=== PATIENT | female | born 1975 | race Caucasian/White ===

== ENCOUNTER 2022-08-29 16:37 | Emergency (ER) | payer OTHER, MEDICAID ==
[2022-08-29] MEDS ORDERED: ONDANSETRON ODT 4 MG TABLET TL STA (17:00)
--- NOTE | 2022-08-29 17:09 | ED Physician Documentation ---
PD HPI NVD - Stated complaint Stated Complaint: VOMITING - Chief complaint Chief Complaint: Abd Pain - History obtained from History obtained from: Patient - Additonal information Additional information: This is a 46-year-old Female with a past history of alcoholism (quit Drinking a few months ago but recently started to introduce "a little" alcohol back into her regimen), and pancreatitis who presents with vomiting and abdominal pain. Symptoms started yesterday and worsened today. Pain is in the lower abdomen, in a different location than prior episodes of pancreatitis. Radiates into her shruthi k. She does not have any dysuria urgency or frequency. No hematuria. She has not had any fever or chills. She states that all she has been able to eat today there is some popsicles which she states she then threw up. 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 Review of Systems Constitutional: reports: Reviewed and negative Cardiac: reports: Reviewed and negative Respiratory: reports: Reviewed and negative GI: reports: Abdominal Pain, Nausea, Vomiting. denies: Abdominal Swelling, Constipation, Diarrhea, Hematemesis, Bloody / black stool : reports: Reviewed and negative Skin: reports: Reviewed and negative Musculoskeletal: reports: Reviewed and negative PD PAST MEDICAL HISTORY - Past Medical History Past Medical History: Yes Other Past Medical History: Alcoholism, pancreatitis, marijuana use - Present Medications Home Medications: Ambulatory Orders Medication Instructions Recorded Confirmed ONDANSETRON ODT Prepack 2 [ZOFRAN 4 mg TL Q6H #12 tablet 08/29/22 ODT Prepack 2] Omeprazole 40 mg PO DAILY #30 cap 08/29/22 Trazodone HCl 100 mg PO QPM 08/29/22 08/29/22 - Allergies Allergies/Adverse Reactions: Allergies Allergy/AdvReac Type Severity Reaction Status Date / Time amoxicillin Allergy Unknown Verified 08/29/22 16:53 cephalexin Allergy Unknown Verified 08/29/22 16:53 Penicillins Allergy Unknown Verified 08/29/22 16:53 clavulanic acid AdvReac Emesis Verified 08/29/22 16:53 [From Augmentin] Sulfa (Sulfonamide AdvReac Emesis Verified 08/29/22 16:53 Antibiotics) PD ED PE NORMAL - Vitals Vital signs reviewed: Yes - General General: Alert and oriented X 3, No acute distress, Well developed/nourished - HEENT HEENT: Atraumatic, Pharynx benign - Neck Neck: Supple, no meningeal sign, No JVD - Cardiac Cardiac: RRR, No murmur - Respiratory Respiratory: No respiratory distress, Clear bilaterally - Abdomen Abdomen: Normal bowel sounds, Soft, Non distended, No organomegaly - Derm Derm: Normal color, Warm and dry, No rash - Extremities Extremities: No deformity, No tenderness to palpate, Normal ROM s pain - Neuro Neuro: Alert and oriented X 3 Eye Opening: Spontaneous Motor: Obeys Commands Verbal: Oriented GCS Score: 15 - Psych Psych: Normal mood, Normal affect Results - Vitals Vitals: Vital Signs - 24 hr 08/29/22 08/29/22 08/29/22 16:50 17:21 18:24 Temperature 36 C L Heart Rate 98 Respiratory 16 17 17 Rate Blood Pressure 116/79 O2 Saturation 99 08/29/22 08/29/22 20:34 20:53 Temperature Heart Rate 53 L Respiratory 18 17 Rate Blood Pressure 120/57 L O2 Saturation 100 Oxygen O2 Source Room air - Labs Labs: Laboratory Tests 08/29/22 08/29/22 08/29/22 17:05 17:05 20:22 WBC 10.3 RBC 4.82 Hgb 14.8 Hct 43.6 MCV 90.5 MCH 30.7 MCHC 33.9 RDW 12.7 Plt Count 312 MPV 8.9 Neut # (Auto) 7.8 H Lymph # (Auto) 2.0 [place] # (Auto) 0.4 Eos # (Auto) 0.0 Baso # (Auto) 0.0 Absolute Nucleated RBC 0.00 Nucleated RBC % 0.0 Sodium 139 Potassium 3.3 L Chloride 101 Carbon Dioxide 21 Anion Gap 17.0 H BUN 12 Creatinine 0.7 Estimated GFR (MDRD) 91 Glucose 85 Calcium 9.1 Total Bilirubin 0.8 AST 24 ALT 18 Alkaline Phosphatase 85 Total Protein 7.8 Albumin 4.5 Globulin 3.3 Albumin/Globulin Ratio 1.4 Lipase 23 Urine Color Urine Clarity Urine pH Ur Specific [place] Urine Protein Urine Glucose (UA) Urine Ketones Urine Occult Blood Urine Nitrite Urine Bilirubin Urine Urobilinogen Ur Leukocyte Esterase Ur Microscopic Review Urine Culture Comments Urine HCG, Qual NEGATIVE 08/29/22 20:22 WBC RBC Hgb Hct MCV MCH MCHC RDW Plt Count MPV Neut # (Auto) Lymph # (Auto) [place] # (Auto) Eos # (Auto) Baso # (Auto) Absolute Nucleated RBC Nucleated RBC % Sodium Potassium Chloride Carbon Dioxide Anion Gap BUN Creatinine Estimated GFR (MDRD) Glucose Calcium Total Bilirubin AST ALT Alkaline Phosphatase Total Protein Albumin Globulin Albumin/Globulin Ratio Lipase Urine Color YELLOW Urine Clarity CLEAR Urine pH 6.0 Ur Specific [place] >=1.030 H Urine Protein TRACE Urine Glucose (UA) NEGATIVE Urine Ketones 40 H Urine Occult Blood TRACE-INTA Urine Nitrite NEGATIVE Urine Bilirubin NEGATIVE Urine Urobilinogen 0.2 (NORMAL) Ur Leukocyte Esterase NEGATIVE Ur Microscopic Review NOT INDICATED Urine Culture Comments NOT INDICATED Urine HCG, Qual PD Medical Decision Making - ED course Complexity details: reviewed results, re-evaluated patient, considered differential, d/w patient ED course: 46-year-old female presented with lower abdominal pain as well as nausea and vomiting which started today. The patient is very well-appearing on physical exam with stable vital signs, she is afebrile nontoxic. She came out in the [facility] several times asking for pain medication and nausea medicine before I was able to see the patient. On physical exam however there is no reproducible pain, she appears very comfortable. I did obtain labs including CBC and CMP which are reassuring, her lipase is normal, urinalysis is negative for infection. She received Zofran and a milligram of Dilaudid with improvement in her symptoms. She has not vomited here. And is tolerating clear liquids. She states she feels like her appetite is coming back and she would like to try some soup. I Suspect this is a mild viral illness, she does not have signs of acute abdomen, no UTI, no pancreatitis, no reproducible abdominal pain to suggest the need for CT scan at this time. I recommended clear liquid diet today and advance slowly as tolerated, I have started her on Zofran as needed as well as Omeprazole. She likely has some underlying gastritis given her history. She was strongly urged to cease all alcohol use as a explained to her that I do not think it was a good idea to read to introduce alcohol given her history and she states understanding. I discussed return precautions in detail with patient and she was discharged home in stable condition. Departure - Departure Disposition: 01 Home, Self Care Clinical Impression: Nausea and vomiting Qualifiers: Vomiting type: unspecified Qualified Code(s): R11.2 - Nausea with vomiting, unspecified Condition: Good Instructions: ED Nausea Vomiting Prescriptions: Omeprazole 40 mg PO DAILY #30 cap ONDANSETRON ODT Prepack 2 [ZOFRAN ODT Prepack 2] 4 mg TL Q6H #12 tablet Comments: Please adhere to a clear liquid diet today, advance slowly as tolerated. We have given you nausea medication in another and acid. Please avoid using alcohol.Follow-up with your primary doctor for this issue or return to the ER if worsening. Discharge Date/Time: 08/29/22 20:56
[2022-08-29 17:18] LABS: BASOPHILS % (AUTO) 0.2 %; EOSINOPHILS % (AUTO) 0.1 %; HCT - HEMATOCRIT 43.6 % (37.0-47.0); HGB - HEMOGLOBIN 14.8 g/dL (12.0-16.0); LYMPHOCYTES % (AUTO) 19.6 %; MEAN CORPUSCULAR HEMOGLOBIN 30.7 pg (27.0-31.0); MEAN CORPUSCULAR HGB CONC 33.9 g/dL (32.0-36.0); MEAN CORPUSCULAR VOLUME 90.5 fL (81.0-99.0); MEAN PLATELET VOLUME 8.9 fL (7.9-10.8); MONOCYTES # (AUTO) 0.4 10^3/uL (0.0-1.0); MONOCYTES % (AUTO) 4.1 %; NEUTROPHILS # (AUTO) 7.8 10^3/uL (1.5-6.6); NEUTROPHILS % (AUTO) 75.7 %; PLT - PLATELET COUNT 312 10^3/uL (130-450); RED BLOOD COUNT 4.82 10^6/uL (4.20-5.40); RED CELL DISTRIBUTION WIDTH 12.7 % (12.0-15.0); WHITE BLOOD COUNT 10.3 x10^3/uL (4.8-10.8)
[2022-08-29 17:33] LABS: ALBUMIN 4.5 g/dL (3.2-5.5); ALBUMIN/GLOBULIN RATIO 1.4 (1.0-2.2); BILIRUBIN,TOTAL 0.8 mg/dL (0.2-1.0); CALCIUM 9.1 mg/dL (8.5-10.3); CREATININE 0.7 mg/dL (0.4-1.0); POTASSIUM 3.3 mmol/L (3.5-5.0); TOTAL PROTEIN 7.8 g/dL (6.7-8.2)
[2022-08-29] MEDS ORDERED: HYDROmorphone 1 MG/ML CARPUJECT IVP STA (18:31)
[2022-08-29] MEDS ORDERED: KETOROLAC 30 MG/ML VIAL IVP STA (18:32)
[2022-08-29] MEDS ORDERED: SODIUM CHLORIDE 0.9% 1,000 ML IV STA (18:32)
[2022-08-29 20:31] LABS: BILIRUBIN,URINE NEGATIVE (NEGATIVE); GLUCOSE, URINE (UA) NEGATIVE (NEGATIVE); KETONES,URINE (UA) 40 mg/dL (NEGATIVE); LEUKOCYTE ESTERASE, URINE NEGATIVE (NEGATIVE); NITRITE,URINE NEGATIVE (NEGATIVE); OCCULT BLOOD,URINE TRACE-INTA (NEGATIVE); PROTEIN,URINE TRACE mg/dL (NEGATIVE); UROBILINOGEN,URINE 0.2 (NORMAL) E.U./dL (NORMAL)
[2022-08-29 20:34] LABS: CLARITY,URINE CLEAR (CLEAR); HCG UR QUAL NEGATIVE
[2022-08-29 20:37] VITALS: BP 120/57
[2022-08-29] MEDS ORDERED: ONDANSETRON ODT 4 MG Prepack 2 TL PRN (20:38)
[2022-08-29] MEDS: PROMETHAZINE INJ 12.5 MG in SODIUM CHLORIDE 0.9% 50 ML IV STA ×2 (20:46→20:56)
[2022-08-29] MEDS ORDERED: PROMETHAZINE 25 MG/1 ML VIAL ONE (20:49)
== END 2022-08-29 20:56 | disposition home or self-care (01) ==
LOC: ED 16:37
DX: R11.2 Nausea with vomiting, unspecified (principal)
CPT/HCPCS: 36415; 80053; 81001; 81003; 81025; 83690; 85025; 87086; 96374; 99284

== ENCOUNTER 2022-09-21 11:33 | Outpatient (CLI) | payer OTHER, MEDICAID | END 2022-09-21 11:34 | disposition critical access hospital (66) | LOC: EMS 11:33 | DX: R45.851 Suicidal ideations (principal); R51.9 Headache, unspecified; R53.83 Other fatigue; R53.1 Weakness | CPT/HCPCS: A0425; A0429 ==

== ENCOUNTER 2022-09-21 11:55 | Emergency (ER) | payer OTHER, MEDICAID ==
[2022-09-21 12:19] VITALS: BP 120/74
--- NOTE | 2022-09-21 12:33 | ED Physician Documentation ---
PD HPI MHE - Stated complaint Stated Complaint: MHE/ETOH - Chief complaint Chief Complaint: MHE - History obtained from History obtained from: Patient, EMS - History of Present Illness Primary symptom: Suicidal ideation Timing - onset: Chronic Pain level max: 0 Pain level now: 0 Contributing factors: Family, Substance abuse - ETOH (Alcohol this morning) - Additional information Additional information: 46-year-old female states that she has been battling depression for "a long time". She states that she thinks about suicide often but has never attempted. Does not have a plan. Lives at home with 3 other people. She states that she had "1 shot of whiskey" today. She states that she has an appointment tomorrow with her PCP to discuss restarting on antidepressants. She states she has never been hospitalized for psychiatric care before. She states that she "just does not know what to do". Review of Systems Constitutional: denies: Fever, Chills Nose: denies: Rhinorrhea / runny nose, Congestion Respiratory: denies: Cough GI: denies: Nausea, Vomiting, Diarrhea : denies: Dysuria Skin: denies: Rash Musculoskeletal: denies: Neck pain, Back pain Neurologic: denies: Headache Psychiatric: reports: Depressed. denies: Homicidal, Hallucinations, Delusions, Anxiety, Insomnia PD PAST MEDICAL HISTORY - Past Medical History Past Medical History: Yes Psych: Depression, Anxiety - Past Surgical History Past Surgical History: No - Present Medications Home Medications: Ambulatory Orders Medication Instructions Recorded Confirmed ONDANSETRON ODT Prepack 2 [ZOFRAN 4 mg TL Q6H #12 tablet 08/29/22 ODT Prepack 2] Omeprazole 40 mg PO DAILY #30 cap 08/29/22 Trazodone HCl 100 mg PO QPM 08/29/22 08/29/22 - Allergies Allergies/Adverse Reactions: Allergies Allergy/AdvReac Type Severity Reaction Status Date / Time amoxicillin Allergy Unknown Verified 08/29/22 16:53 cephalexin Allergy Unknown Verified 08/29/22 16:53 Penicillins Allergy Unknown Verified 08/29/22 16:53 clavulanic acid AdvReac Emesis Verified 08/29/22 16:53 [From Augmentin] Sulfa (Sulfonamide AdvReac Emesis Verified 08/29/22 16:53 Antibiotics) PD ED PE NORMAL - Vitals Vital signs reviewed: Yes - General General: Alert and oriented X 3, Other (Smells of alcohol) - HEENT HEENT: PERRL, Moist mucous membranes, Pharynx benign - Neck Neck: Supple, no meningeal sign - Cardiac Cardiac: RRR, Strong equal pulses - Respiratory Respiratory: No respiratory distress, Clear bilaterally - Abdomen Abdomen: Soft, Non tender, Non distended - Derm Derm: Warm and dry - Extremities Extremities: No edema, No calf tenderness / cord - Neuro Neuro: Alert and oriented X 3 - Psych Psych: Other (Tearful) Results - Vitals Vitals: Vital Signs - 24 hr 09/21/22 12:07 Temperature 36.5 C Heart Rate 89 Respiratory 15 Rate Blood Pressure 120/74 O2 Saturation 99 Oxygen O2 Source Room air - Labs Labs: Laboratory Tests 09/21/22 09/21/22 09/21/22 12:04 12:31 12:31 WBC 7.1 RBC 5.06 Hgb 15.9 Hct 47.1 H MCV 93.1 MCH 31.4 H MCHC 33.8 RDW 13.8 Plt Count 208 MPV 9.0 Neut # (Auto) 4.2 Lymph # (Auto) 2.5 [place] # (Auto) 0.3 Eos # (Auto) 0.0 Baso # (Auto) 0.0 Absolute Nucleated RBC 0.00 Nucleated RBC % 0.0 Sodium 148 H Potassium 3.5 Chloride 110 Carbon Dioxide 28 Anion Gap 10.0 BUN 10 Creatinine 0.6 Estimated GFR (MDRD) 109 Glucose 92 Calcium 9.4 Total Bilirubin 0.5 AST 33 ALT 33 Alkaline Phosphatase 91 Total Protein 7.8 Albumin 4.7 Globulin 3.1 Albumin/Globulin Ratio 1.5 Lipase 23 TSH Urine Color LIGHT YELLOW Urine Clarity CLEAR Urine pH 6.5 Ur Specific [place] <=1.005 Urine Protein NEGATIVE Urine Glucose (UA) NEGATIVE Urine Ketones NEGATIVE Urine Occult Blood NEGATIVE Urine Nitrite NEGATIVE Urine Bilirubin NEGATIVE Urine Urobilinogen 0.2 (NORMAL) Ur Leukocyte Esterase NEGATIVE Ur Microscopic Review NOT INDICATED Urine Culture Comments NOT INDICATED Salicylates < 6.0 Urine Opiates Screen NEGATIVE Ur Oxycodone Screen POSITIVE H Urine Methadone Screen NEGATIVE Ur Propoxyphene Screen NEGATIVE Acetaminophen < 10 L Ur Barbiturates Screen NEGATIVE Ur Tricyclics Screen NEGATIVE Ur Phencyclidine Scrn NEGATIVE Ur Amphetamine Screen NEGATIVE U Methamphetamines Scrn NEGATIVE U Benzodiazepines Scrn NEGATIVE Urine Cocaine Screen NEGATIVE U Cannabinoids Screen NEGATIVE Ethyl Alcohol 344.4 09/21/22 12:31 WBC RBC Hgb Hct MCV MCH MCHC RDW Plt Count MPV Neut # (Auto) Lymph # (Auto) [place] # (Auto) Eos # (Auto) Baso # (Auto) Absolute Nucleated RBC Nucleated RBC % Sodium Potassium Chloride Carbon Dioxide Anion Gap BUN Creatinine Estimated GFR (MDRD) Glucose Calcium Total Bilirubin AST ALT Alkaline Phosphatase Total Protein Albumin Globulin Albumin/Globulin Ratio Lipase TSH < 0.08 L Urine Color Urine Clarity Urine pH Ur Specific [place] Urine Protein Urine Glucose (UA) Urine Ketones Urine Occult Blood Urine Nitrite Urine Bilirubin Urine Urobilinogen Ur Leukocyte Esterase Ur Microscopic Review Urine Culture Comments Salicylates Urine Opiates Screen Ur Oxycodone Screen Urine Methadone Screen Ur Propoxyphene Screen Acetaminophen Ur Barbiturates Screen Ur Tricyclics Screen Ur Phencyclidine Scrn Ur Amphetamine Screen U Methamphetamines Scrn U Benzodiazepines Scrn Urine Cocaine Screen U Cannabinoids Screen Ethyl Alcohol PD Medical Decision Making - ED course Complexity details: considered differential, d/w patient ED course: Patient states that she changed her mind about staying and talking to social work or trying to get her help as an outpatient. She does not want inpatient care. She is not actively suicidal. Does not currently have a plan. States that she feels safe at home and will follow-up with her PCP tomorrow. Her friend is coming to get her and the patient was able to contract for safety. The friend is comfortable taking her home and being responsible for her. Offered several times to allow the patient to sober in the emergency department so we can help her with her depression. Patient states that she would rather follow-up with her primary care provider tomorrow as scheduled. Patient states that she has never attempted suicide. Patient contracts for safety today. States she will speak to her doctor tomorrow. Patient refused to wait for discharge instructions and left the emergency department under her own power with a steady gait, clear speech and with her friend. Departure - Departure Disposition: Left Prior to DC Instructions Clinical Impression: Depression Qualifiers: Depression Type: unspecified Qualified Code(s): F32.A - Depression, unspecified Condition: Good Instructions: ED Depression Follow-Up: CAMDEN DOMINGUEZ ARNP [Physician No Access] - Tomorrow Discharge Date/Time: 09/21/22 13:02
[2022-09-21 12:36] LABS: MUDS CUTOFF CONCENTRATIONS CUTOFF CONC BELOW:
[2022-09-21 12:36] LABS: BASOPHILS % (AUTO) 0.4 %; EOSINOPHILS % (AUTO) 0.6 %; HCT - HEMATOCRIT 47.1 % (37.0-47.0); HGB - HEMOGLOBIN 15.9 g/dL (12.0-16.0); LYMPHOCYTES # (AUTO) 2.5 10^3/uL (1.5-3.5); LYMPHOCYTES % (AUTO) 35.6 %; MEAN CORPUSCULAR HEMOGLOBIN 31.4 pg (27.0-31.0); MEAN CORPUSCULAR HGB CONC 33.8 g/dL (32.0-36.0); MEAN CORPUSCULAR VOLUME 93.1 fL (81.0-99.0); MONOCYTES # (AUTO) 0.3 10^3/uL (0.0-1.0); MONOCYTES % (AUTO) 3.5 %; NEUTROPHILS # (AUTO) 4.2 10^3/uL (1.5-6.6); NEUTROPHILS % (AUTO) 59.6 %; PLT - PLATELET COUNT 208 10^3/uL (130-450); RED BLOOD COUNT 5.06 10^6/uL (4.20-5.40); RED CELL DISTRIBUTION WIDTH 13.8 % (12.0-15.0); WHITE BLOOD COUNT 7.1 x10^3/uL (4.8-10.8)
[2022-09-21 12:49] LABS: BILIRUBIN,URINE NEGATIVE (NEGATIVE); GLUCOSE, URINE (UA) NEGATIVE (NEGATIVE); KETONES,URINE (UA) NEGATIVE (NEGATIVE); LEUKOCYTE ESTERASE, URINE NEGATIVE (NEGATIVE); NITRITE,URINE NEGATIVE (NEGATIVE); OCCULT BLOOD,URINE NEGATIVE (NEGATIVE); PH,URINE 6.5 PH (5.0-7.5); PROTEIN,URINE NEGATIVE (NEGATIVE); UROBILINOGEN,URINE 0.2 (NORMAL) E.U./dL (NORMAL)
[2022-09-21 12:51] LABS: CLARITY,URINE CLEAR (CLEAR)
[2022-09-21 13:05] LABS: AMPHETAMINE SCREEN,URINE NEGATIVE (NEGATIVE); BARBITURATE SCREEN,UR NEGATIVE (NEGATIVE); BENZODIAZEPINES SCREEN, URINE NEGATIVE (NEGATIVE); COCAINE SCREEN URINE NEGATIVE (NEGATIVE); METHADONE SCREEN, URINE NEGATIVE (NEGATIVE); METHAMPHETAMINES SCREEN, URINE NEGATIVE (NEGATIVE); OPIATE SCREEN, URINE NEGATIVE (NEGATIVE); OXYCODONE SCREEN, URINE POSITIVE (NEGATIVE); PROPOXYPHENE SCREEN, URINE NEGATIVE (NEGATIVE); THC CANNABINOID SCREEN, URINE NEGATIVE (NEGATIVE); TRICYCLIC ANTIDEPRESSANT,URINE NEGATIVE (NEGATIVE)
[2022-09-21 13:13] LABS: ACETAMINOPHEN < 10 ug/mL (10-30); ALBUMIN 4.7 g/dL (3.2-5.5); ALBUMIN/GLOBULIN RATIO 1.5 (1.0-2.2); ALKALINE PHOSPHATASE 91 IU/L (42-121); ALT ALANINE AMINOTRANSFERASE 33 IU/L (10-60); AST ASPARTATE AMINOTRANSFERASE 33 IU/L (10-42); BILIRUBIN,TOTAL 0.5 mg/dL (0.2-1.0); BUN - BLOOD UREA NITROGEN 10 mg/dL (6-20); CALCIUM 9.4 mg/dL (8.5-10.3); CARBON DIOXIDE - CO2 28 mmol/L (21-32); CHLORIDE 110 mmol/L (101-111); CREATININE 0.6 mg/dL (0.4-1.0); ETOH - ETHANOL 344.4 mg/dL; GFR - MDRD 109 (>89); GLUCOSE 92 mg/dL (70-100); LIPASE 23 U/L (22-51); POTASSIUM 3.5 mmol/L (3.5-5.0); SALICYLATE < 6.0 mg/dL; SODIUM 148 mmol/L (135-145); TOTAL PROTEIN 7.8 g/dL (6.7-8.2)
== END 2022-09-21 13:02 | disposition home or self-care (01) ==
LOC: EDUNIT# → ED 11:55
DX: F32.A Depression, unspecified (principal); F10.129 Alcohol abuse with intoxication, unspecified; F11.90 Opioid use, unspecified, uncomplicated; Y90.8 Blood alcohol level of 240 mg/100 ml or more; F41.9 Anxiety disorder, unspecified; Z79.899 Other long term (current) drug therapy
CPT/HCPCS: 36415; 80053; 80306; 80307; 80320; 80329; 81001; 81003; 83690; 84443; 85025; 87086; 99283